=== PATIENT | female | born 1985 | race Caucasian/White ===

== ENCOUNTER 2016-11-12 11:43 | Outpatient (CLI) | payer OTHER ==
[~2016-11-12] VITALS: Ht 160 cm; Wt 96.8 kg
[2016-11-12 12:30] VITALS: BP 120/75; PULSE 84; Ht 160 cm; Wt 96.8 kg
[2016-11-12] MEDS ORDERED: LEVE500V10 IVPB (12:32)
[2016-11-12] MEDS ORDERED: PNV11TAB PO (12:32)
[2016-11-12 13:18] LABS: ADD UMIC YES; URINE BILIRUBIN (Dip) NEGATIVE (NEGATIVE); URINE BLOOD (Dip) 2+ (NEGATIVE); URINE COLOR LT. YELLOW (YELLOW); URINE GLUCOSE (Dip) NEGATIVE (NEGATIVE); URINE KETONES (Dip) NEGATIVE (NEGATIVE); URINE LEUKOCYTE ESTERASE (Dip) NEGATIVE (NEGATIVE); URINE NITRITE (Dip) NEGATIVE (NEGATIVE); URINE TOTAL PROTEIN (Dip) TRACE (NEGATIVE); URINE UROBILINOGEN (Dip) 0.2 E.U./dL (0.1-1.0)
--- NOTE | 2016-11-12 13:23 | RADRPT ---
PROCEDURE: OB ultrasound for biophysical profile CLINICAL INDICATION: Spontaneous rupture of membranes. TECHNIQUE: Multiple sonographic images of the pelvis were obtained. Transabdominal view of the gr avid uterus are available for review. The images were reviewed on a PACS workstation. COMPARISON: OB ultrasound 10/14/2016 FINDINGS: breathing movement = 2/2 tone = 2/2 motion = 2/2 KENDELL = 2/2 KENDELL = 11.12 cm Single live intrauterine with cardiac activity. heart rate equals 131 beats p er minute. Presentation is cephalic. The placenta is anterior. IMPRESSION: 1. Single viable intrauterine gestation. 2. Biophysical profile = 8/8. 3. KENDELL = 11.12 cm. RPTAT: KK .Ernie Bennett MD, MD Date Time Electronically viewed and signed by .Ernie Bennett MD, MD on 11/12/2016 13:22 .B/
[2016-11-12 13:46] LABS: BACTERIA,URINE MODERATE
[2016-11-12 14:19] LABS: ADD SCAN DIFF NO
[2016-11-12 14:23] LABS: BASOPHILS % 0.1 % (0.0-2.0); EOSINOPHILS % 0.6 % (0.0-7.0); HEMOGLOBIN 11.9 g/dl (12.0-16.0); LYMPHOCYTES # 1.2 10^3/ul (0.8-2.9); LYMPHOCYTES % 16.9 % (15.0-51.0); MEAN CORPUSCULAR HEMOGLOBIN 31.3 pg (29.0-33.0); MEAN CORPUSCULAR VOLUME 89.5 fl (82.0-101.0); MEAN PLATELET VOLUME 10.3 fl (7.4-10.4); MONOCYTE # 0.4 10^3/ul (0.3-0.9); MONOCYTES % 5.8 % (0.0-11.0); NEUTROPHIL # 5.5 10^3/ul (1.6-7.5); PLATELET COUNT 152 10^3/UL (140-415); RED CELL DISTRIBUTION WIDTH 12.4 % (11.5-14.5); WHITE BLOOD COUNT 7.2 10^3/ul (4.8-10.8)
--- NOTE | 2016-11-12 16:14 | CONS ---
Date/Time of Note Date/Time of Note DATE: 11/12/16 TIME: 16:07 Consultation Date/Type/Reason Admit Date/Time November 12, 2016 OB triage consult Reason for Consultation This patient is a 31 years old 3 para para living 2 with estimated date of confinement of 12/29/2016 which makes her 23 weeks and 2 days. She was referred from the clinic for possible premature rupture of membrane In reviewing her past history she had 2 spontaneous vaginal deliveries. She has history of epilepsy on a medication called Keppra 500 mg twice daily she also is taking her vitamins during this . On examination she is a well-developed well-nourished lady , with her third child . Her vital signs appear to be normal: Blood pressure 120/75, pulse rate 89, respiration 15, and temperature 98, On examination the abdomen is soft, she does not have much of a contraction, heart tone is audible We did a ROM plus test which came back negative ,Nitrazine test also was negative ,an ultrasound was performed on her which was reported ; a single live intrauterine , heart rate was 131 in cephalic presentation , placenta fundal her KENDELL on 11.12 cm. Laboratory Tests Test 11/12/16 12:55 11/12/16 14:10 Urine Color LT. YELLOW Urine Clarity CLEAR Urine pH 6.0 Urine Specific [place] 1.015 Urine Ketones NEGATIVE Urine Nitrite NEGATIVE Urine Bilirubin NEGATIVE Urine Urobilinogen 0.2 E.U./dL Urine Leukocyte Esterase NEGATIVE Urine Microscopic RBC 10-25/HPF Urine Microscopic WBC 2-5/HPF Urine Epithelial Cells MODERATE Urine Bacteria MODERATE Urine Hemoglobin 2+ Urine Glucose NEGATIVE% Urine Total Protein TRACE Membranes Rupture NEGATIVE White Blood Count 7.210^3/ul Red Blood Count 3.8010^6/ul Hemoglobin 11.9g/dl Hematocrit 34.0% Mean Corpuscular Volume 89.5fl Mean Corpuscular Hemoglobin 31.3pg Mean Corpuscular Hemoglobin Concent 35.0g/dl Red Cell Distribution Width 12.4% Platelet Count 77955^3/UL Mean Platelet Volume 10.3fl Neutrophils % 76.0% Lymphocytes % 16.9% Monocytes % 5.8% Eosinophils % 0.6% Basophils % 0.1% Nucleated Red Blood Cells % 0.0/100WBC Neutrophils # 5.510^3/ul Lymphocytes # 1.210^3/ul Monocytes # 0.410^3/ul Eosinophils # 0.010^3/ul Basophils # 0.010^3/ul Nucleated Red Blood Cells # 0.010^3/ul Hx of Present Illness Her urine test was negative . Her CBC was normal except for mild anemia hemoglobin of 11.9 with hematocrit of 30 Constitutional: No chills, No diaphoresis, No disoriented, No febrile, No improved, No no complaints, No other, No poor po, No requiring IVF, No requiring O2 Eyes: No discharge, No no complaints, No other, No pain, No redness, No visual change ENT: No bleeding, No congestion, No discharge, No dysphagia, No no complaints, No other, No pain, No sore throat Cardiovascular: no complaints, No chest pain, No edema, No lightheadedness, No orthopenea, No other, No palpitations, No paroxysmal nocturnal dyspnea Gastrointestinal: No blood, No constipation, No decreased appetite, No diarrhea , No flatus, No nausea, No no complaints, No other, No pain, No passing stool, No vomiting Genitourinary: other (No evidence of vaginal bleeding or vaginal discharge), No bleeding, No discharge, No dysuria, No flank pain, No hematuria, No no complaints Musculoskeletal: No back pain, No bone/joint pain, No neck pain, No no complaints, No other, No restricted range of motion, No swelling Skin: No bruising, No erythema, No laceration, No no complaints, No other, No pruritis, No rash, No skin lesions Neurologic: No confusion, No dizziness, No focal-weakness, No headache, No no complaints, No other, No seizure, No syncope Endocrine: No dry skin, No no complaints, No other, No polydypsia, No polyuria , No temp intolerance Additional Comments With these negative findings patient was discharged home to be followed in the clinic Social History Smoking Status: Never smoker Exam/Review of Systems Vital Signs Vitals Vital Signs Date Time Temp Pulse Resp B/P Pulse Ox O2 Delivery O2 Flow Rate FiO2 11/12/16 12:30 98.1 84 120/75 Results Result Diagram: 11/12/16 1410 Results 24 hrs Laboratory Tests Test 11/12/16 12:55 11/12/16 14:10 Urine Color LT. YELLOW Urine Clarity CLEAR Urine pH 6.0 Urine Specific [place] 1.015 Urine Ketones NEGATIVE Urine Nitrite NEGATIVE Urine Bilirubin NEGATIVE Urine Urobilinogen 0.2 E.U./dL Urine Leukocyte Esterase NEGATIVE Urine Microscopic RBC 10-25 Urine Microscopic WBC 2-5 Urine Epithelial Cells MODERATE Urine Bacteria MODERATE Urine Hemoglobin 2+ H Urine Glucose NEGATIVE Urine Total Protein TRACE Membranes Rupture NEGATIVE White Blood Count 7.2 Red Blood Count 3.80 L Hemoglobin 11.9 L Hematocrit 34.0 L Mean Corpuscular Volume 89.5 Mean Corpuscular Hemoglobin 31.3 Mean Corpuscular Hemoglobin Concent 35.0 Red Cell Distribution Width 12.4 Platelet Count 152 Mean Platelet Volume 10.3 Neutrophils % 76.0 Lymphocytes % 16.9 Monocytes % 5.8 Eosinophils % 0.6 Basophils % 0.1 Nucleated Red Blood Cells % 0.0 Neutrophils # 5.5 Lymphocytes # 1.2 Monocytes # 0.4 Eosinophils # 0.0 Basophils # 0.0 Nucleated Red Blood Cells # 0.0 KENROY CHOI MD November 12, 2016 16:14
== END 2016-11-12 15:40 | disposition home or self-care (01) ==
LOC: OBT 11:43 → L-D 11:46 → OBT 15:40
PROVIDERS: ATTEND Obstetrics & Gynecology
DX: O26.892 Other specified pregnancy related conditions, second trimester (principal); Z3A.23 23 weeks gestation of pregnancy
CPT/HCPCS: 76818; 81001; 81003; 84112; 85025; 87086

== ENCOUNTER 2016-12-02 10:21 | Outpatient (CLI) | payer OTHER ==
[~2016-12-02] VITALS: Ht 162.6 cm; Wt 100.3 kg
[~2016-12-02 10:21] MED LIST: LEVE500V10 IVPB; PNV11TAB PO
[2016-12-02 10:33] VITALS: Ht 162.6 cm; Wt 100.3 kg
[2016-12-02 10:34] VITALS: BP 117/73; PULSE 76; RESP 18
--- NOTE | 2016-12-02 11:02 | RADRPT ---
PROCEDURE: US OB biophysical profile. CLINICAL INDICATION: decreased movements, contractions TECHNIQUE: Multiple sonographic images of the pelvis were obtained. The images were reviewed on a PACS workstation. COMPARISON: 11/12/2016 FINDINGS: There is a single viable intrauterine gestation. Cardiac activity is present with 146 beats per min [place]. There is a vertex presentation. The placenta is anterior. There is no evidence of placental abruption. There is a normal amount of amniotic fluid with an KENDELL = 9.5 cm. Biophysical profile: movement 2/2 tone 2/2. breathing 2/2 KENDELL 2/2 Total 02/09 RPTAT: AA . IMPRESSION: Normal biophysical profile. . .Lobo Keith MD, MD Date Time Electronically viewed and signed by .Lobo Keith MD, on 12/02/2016 11:02 .S/
[2016-12-02] MEDS ORDERED: PRENAT PO ×2 (12:06→12:10)
--- NOTE | 2016-12-02 12:13 | TRIAGE ---
OB Triage Datetime Report Generated by CPN: 12/02/2016 12:12 Datetime: 12/02/2016 11:18 Comments: NST reactive Datetime: 12/02/2016 10:48 Comments: u/s done Datetime: 12/02/2016 10:38 Stage of : OB Triage Movement: Present Maternal Assessment Level of Consciousness: Fully Conscious DTR's/Clonus: DTRs 2+; No Clonus Headache: Denies Blurred Vision: No Respiratory Effort: Unlabored; Regular Rhythm; Equal Expansion Breath Sounds, Left: Clear and Equal Breath Sounds, Right: Clear and Equal Nausea/Vomiting: Denies RUQ Epigastric Pain: Denies Lower Extremities Edema: None Degree: None Upper Extremities Edema: None Degree: None Facial Edema: None Temperature Route: Axillary Fall Risk Assessment History of Falling: (0) No Secondary Diagnosis: (0) No Ambulatory Aid: (0) Bedrest/Nurse Assist IV Therapy: (0) No Gait: (0) Normal/Bedrest/Immobile Mental Status: (0) Oriented to Own Ability Fall Score: 0 Fall Risk Score Definition: No Risk: No action required Monitor Mode: External (Annotations: denies feeling contractions) Heart Rate FHR Baseline Rate: 145 (Annotations: initial) Monitor Mode: External US Pain Assessment Pain Scale: 0 Datetime: 12/02/2016 10:35 Time of Arrival: 12/02/2016 10:35 EGA: 36.1 Arrived By: Ambulatory Arrived From: Dr. Pittman Chief Complaint: decreased movement Movement: Decreased Contractions: Occasional Rupture of Membranes: Denies Vaginal Bleeding: None Vaginal Discharge: Denies Recent Sexual Intercouse: Denies Abdominal Trauma: Not Applicable Patient Complaints: Other Time Provider Notified: 12/02/2016 11:21 Provider Notified: Dr Blackburn Initial Plan: efm/ bpp Datetime: 11/12/2016 15:27 Stage of : OB Triage Datetime: 11/12/2016 15:10 Labor Evaluation Frequency: 0 Monitor Mode: External Resting Tone [place]: Relaxed Heart Rate FHR Baseline Rate: 135 Monitor Mode: External US Variability: Moderate 6-25 bpm Accelerations: 10X10 Decelerations: None Category: Category I Pain Assessment Pain Scale: 0 Pain Presence: None/Denies Pain Type: N/A Pain Goal: 3 Pain Relief Measures: Comfort Measures Datetime: 11/12/2016 15:02 Stage of : OB Triage Datetime: 11/12/2016 15:00 Stage of : OB Triage Datetime: 11/12/2016 14:07 Labor Evaluation Frequency: 0 Monitor Mode: External Resting Tone [place]: Relaxed Heart Rate FHR Baseline Rate: 135 Monitor Mode: External US Variability: Moderate 6-25 bpm Accelerations: 10X10 Decelerations: None Category: Category I Pain Assessment Pain Scale: 0 Pain Presence: None/Denies Pain Type: N/A Pain Goal: 3 Pain Relief Measures: Comfort Measures Datetime: 11/12/2016 13:17 Labor Evaluation Frequency: 0 Monitor Mode: External Resting Tone [place]: Relaxed Heart Rate FHR Baseline Rate: 135 Monitor Mode: External US Variability: Moderate 6-25 bpm Accelerations: 10X10 Decelerations: None Category: Category I Pain Assessment Pain Scale: 0 Pain Presence: None/Denies Pain Type: N/A Pain Goal: 3 Pain Relief Measures: Comfort Measures Datetime: 11/12/2016 12:39 Stage of : OB Triage Datetime: 11/12/2016 12:26 Stage of : OB Triage Datetime: 11/12/2016 12:09 Stage of : OB Triage Assessment Type: Triage EGA: 33.2 Maternal Assessment Level of Consciousness: Fully Conscious DTR's/Clonus: DTRs 2+; No Clonus Headache: Denies Blurred Vision: No Respiratory Effort: Unlabored; Regular Rhythm; Equal Expansion Breath Sounds, Left: Clear and Equal Breath Sounds, Right: Clear and Equal Nausea/Vomiting: Denies RUQ Epigastric Pain: Denies Facial Edema: None Temperature Route: Axillary Fall Risk Assessment History of Falling: (0) No Secondary Diagnosis: (0) No Ambulatory Aid: (0) Bedrest/Nurse Assist IV Therapy: (0) No Gait: (0) Normal/Bedrest/Immobile Mental Status: (0) Oriented to Own Ability Fall Score: 0 Fall Risk Score Definition: No Risk: No action required Labor Evaluation Frequency: 0 Monitor Mode: External Resting Tone [place]: Relaxed Heart Rate FHR Baseline Rate: 135 Monitor Mode: External US Variability: Moderate 6-25 bpm Decelerations: None Pain Assessment Pain Scale: 0 Pain Presence: None/Denies Pain Type: N/A Pain Goal: 3 Pain Relief Measures: Comfort Measures Datetime: 11/12/2016 12:08 Time of Arrival: 11/12/2016 11:40 Arrived By: Ambulatory Arrived From: Dr. Pittman Chief Complaint: SENT FROM OFFICE TO R/O SROM, DENIES BLEEDING OR LEAKING OF FLUID. STATES CLINIC FOUND BLOOD IN URINE Movement: Present Contractions: Denies/Absent Rupture of Membranes: Unsure Vaginal Bleeding: None Vaginal Discharge: Denies Recent Sexual Intercouse: Denies Abdominal Trauma: Not Applicable Patient Complaints: None Time Provider Notified: 11/12/2016 12:27 Provider Notified: RADHA Initial Plan: MONITOR, ROM PLUS, NITRAZINE, KENDELL
--- NOTE | 2016-12-02 15:30 | QN ---
Documentation Comment 31-year-old with IUP at 36 weeks and 1 day here today for decreased movement. Patient denies any leaking of fluid, vaginal bleeding. Past medical history significant for history of seizure disorder, grand mal diagnosed at age of 21. She is currently on Keppra. Been seen by a neurologist. She stopped her medication during current in August and had a seizure subsequently she was returned back on her medications. She denies any episodes of seizure after she was a started back on her Keppra medication. Physical examination: General appearance: Alert and oriented 4 patient does not appear to be in any acute distress. Abdomen: Gravid, Non tender, fundal height consistent with GA. BPP: 88 NST: Cat 1. PROCEDURE: US OB biophysical profile. CLINICAL INDICATION: decreased movements, contractions TECHNIQUE: Multiple sonographic images of the pelvis were obtained. The images were reviewed on a PACS workstation. COMPARISON: 11/12/2016 FINDINGS: There is a single viable intrauterine gestation. Cardiac activity is present with 146 beats per minute. There is a vertex presentation. The placenta is anterior. There is no evidence of placental abruption. There is a normal amount of amniotic fluid with an KENDELL = 9.5 cm. Biophysical profile: movement 2/2 tone 2/2. breathing 2/2 KENDELL 2/2 Total 02/09 RPTAT: AA . IMPRESSION: Normal biophysical profile. Assessment: IUP at 36 weeks and 1 day Decreased movement, testing reassuring Seizure disorder. On Keppra. Following up by neurologist., Asymptomatic. Plan: DC home Strict labor precaution and kick count discussed Follow-up with her OB office as a scheduled in 1 week or sooner as needed any other concern Return to triage if she feels a still decreased movement, vaginal bleeding , labor pain or any other concerns. Follow-up with her neurologist for management and follow-up of seizure disorder recommended and compliance with taking regularly her medication as well as risk of stopping the medication during including poor maternal and outcome in case of seizure episodes during discussed. Patient verbalized understanding. CHRISTINA ADAMS MD December 02, 2016 15:30
== END 2016-12-02 12:20 | disposition home or self-care (01) ==
LOC: OBT 10:21 → L-D 10:23 → OBT 12:20
PROVIDERS: ATTEND Obstetrics & Gynecology
DX: O36.8130 Decreased fetal movements, third trimester, not applicable or unspecified (principal); O62.8 Other abnormalities of forces of labor; Z3A.36 36 weeks gestation of pregnancy
CPT/HCPCS: 76818; Z7500; G0463

== ENCOUNTER 2016-12-07 16:33 | Outpatient (CLI) | payer OTHER ==
[~2016-12-07] VITALS: Ht 162.6 cm; Wt 99.6 kg
[~2016-12-07 16:33] MED LIST changes: +PRENAT PO
[2016-12-07] MEDS ORDERED: ONDANSETRON 4 MG INJ IV STA (17:36)
[2016-12-07] MEDS ORDERED: CITRIC ACID/SODIUM CITRATE 15 ML CUP PO ONE (18:00)
[2016-12-07 18:43] VITALS: BP 124/77; PULSE 78; RESP 18; Ht 162.6 cm; Wt 99.6 kg
[2016-12-07 18:57] LABS: ADD UMIC YES; UR BILIRUBIN (Dip) NEGATIVE (NEGATIVE); UR BLOOD (Dip) 3+ (NEGATIVE); UR CLARITY CLOUDY (CLEAR); UR COLOR LT. YELLOW (YELLOW); UR GLUCOSE (Dip) NEGATIVE (NEGATIVE); UR KETONES (Dip) NEGATIVE (NEGATIVE); UR LEUKOCYTE ESTERASE (Dip) NEGATIVE (NEGATIVE); UR NITRITE (Dip) NEGATIVE (NEGATIVE); UR TOTAL PROTEIN (Dip) NEGATIVE (NEGATIVE); UR UROBILINOGEN (Dip) 0.2 E.U./dL (0.1-1.0)
[2016-12-07 19:06] LABS: UR BACTERIA FEW; UR SQUAMOUS EPITHELIAL CELL MANY
--- NOTE | 2016-12-07 19:14 | RADRPT ---
PROCEDURE: US OB biophysical profile. CLINICAL INDICATION: decreased movements, contractions TECHNIQUE: Multiple sonographic images of the pelvis were obtained. The images were reviewed on a PACS workstation. COMPARISON: 12/02/2016 FINDINGS: There is a single viable intrauterine gestation. Cardiac activity is present with 166 beats per min [place]. There is a vertex presentation. The placenta is anterior. There is no evidence of placental abruption. There is a normal amount of amniotic fluid with an KENDELL = 13.9 cm. Biophysical profile: movement 2/2 tone 2/2. breathing 2/2 KENDELL 2/2 Total 02/09 RPTAT: AA . IMPRESSION: Normal biophysical profile. . .Lobo Keith MD, MD Date Time Electronically viewed and signed by .Lobo Keith MD, MD on 12/07/2016 19:14 .S/
--- NOTE | 2016-12-07 19:16 | RADRPT ---
PROCEDURE: US OB. CLINICAL INDICATION: Labor madi TECHNIQUE: Multiple sonographic images of the pelvis were obtained. The images were reviewed on a PACS workstation. COMPARISON: OB sonogram 12/07/2016. FINDINGS: The cervix is closed with a length of . There is a single viable intrauterine gestation. Cardiac activity is present with 143 beats per min [place]. There is a cephalic presentation. Measurements were made in order to determine age. The results are as follows: BPD =a 0.9 cm: 36 weeks 1 day HC =31.8 cm: 35 weeks 6 days AC =33.8 cm: 37 weeks 5 days FL =7.2 cm: 36 weeks 5 days.. Estimated gestational age of approximately 36 weeks 4 days plus or minus 2 weeks 4 days. . The estimated date of delivery is not applicable. ALEKSANDRA (AUA) 12/31/2016. The EFW = 3111 g plus or minus 667 g . anatomy is not evaluated. The placenta is anterior grade 2. There is no evidence for an abruption or placenta previa. There is a diminished amount of amniotic fluid with an KENDELL = not measured. There are no adnexal masses.. IMPRESSION: 1. Single viable intrauterine gestation of approximately 36 weeks 4 days plus or minus 2 weeks 4 da ys. 2. Oligohydramnios. Physician Gayle Date Time Electronically viewed and signed by Physician Gayle on 12/07/2016 19:16 /
[2016-12-07 21:03] LABS: ADD SCAN DIFF NO
[2016-12-07 21:07] LABS: BASOPHILS % 0.4 % (0.0-2.0); EOSINOPHILS % 0.5 % (0.0-7.0); HEMATOCRIT 36.1 % (37.0-47.0); HEMOGLOBIN 12.5 g/dl (12.0-16.0); LYMPHOCYTES # 1.7 10^3/ul (0.8-2.9); LYMPHOCYTES % 20.2 % (15.0-51.0); MEAN CORPUSCULAR HEMOGLOBIN 30.9 pg (29.0-33.0); MEAN CORPUSCULAR HGB CONC 34.6 g/dl (32.0-37.0); MEAN CORPUSCULAR VOLUME 89.4 fl (82.0-101.0); MEAN PLATELET VOLUME 10.7 fl (7.4-10.4); MONOCYTE # 0.6 10^3/ul (0.3-0.9); MONOCYTES % 6.6 % (0.0-11.0); NEUTROPHIL # 6.1 10^3/ul (1.6-7.5); NEUTROPHILS % 71.7 % (39.0-77.0); PLATELET COUNT 183 10^3/UL (140-415); RED BLOOD COUNT 4.04 10^6/ul (4.20-5.40); RED CELL DISTRIBUTION WIDTH 13.1 % (11.5-14.5); WHITE BLOOD COUNT 8.5 10^3/ul (4.8-10.8)
[2016-12-07 21:27] LABS: ALBUMIN 3.9 g/dl (3.3-4.9); ALBUMIN/GLOBULIN RATIO 1.5; BILIRUBIN,INDIRECT 0.2 mg/dl (0-1.1); BILIRUBIN,TOTAL 0.2 mg/dl (0.2-1.3); CALCIUM 8.8 mg/dl (8.4-10.2); CREATININE 0.53 mg/dl (0.44-1.00); POTASSIUM 4.3 mmol/L (3.5-5.1); TOTAL PROTEIN 6.5 g/dl (6.1-8.1)
--- NOTE | 2016-12-08 00:57 | RADRPT ---
PROCEDURE: Ultrasound cervix limited CLINICAL INDICATION: Uterine contractions TECHNIQUE: Real time sonographic imaging of the gravid cervix is performed and a total of 3 static [place] scale images are submitted to the PACS for review COMPARISON: Biophysical profile 12/07/2016 FINDINGS: The measurement submitted for review cervical length are 2.57 cm, 2.51 cm and 2.6 cm. The internal cervical os appears closed. RPTAT:HJJR IMPRESSION: Cervical length measured at 2.5 cm. Physician Axel Date Time Electronically viewed and signed by Physician Axel on 12/08/2016 00:57 JR/
--- NOTE | 2016-12-08 04:51 | TRIAGE ---
OB Triage Datetime Report Generated by CPN: 12/08/2016 04:50 Datetime: 12/08/2016 01:10 Stage of : OB Triage Datetime: 12/08/2016 01:00 Labor Evaluation Frequency: IRREGULAR Monitor Mode: External Duration (sec)2399: 60 Quality: Mild Pattern: Normal: <= 5 Contractions in 10 Minutes Resting Tone [place]: Relaxed Heart Rate FHR Baseline Rate: 135 FHR Baseline Changes: No Baseline Change Variability: Moderate 6-25 bpm Accelerations: 15X15 Decelerations: None Category: Category I Datetime: 12/08/2016 00:58 Labor Evaluation Frequency: IRREGULAR Monitor Mode: External Duration (sec)2399: 60 Quality: Mild Pattern: Normal: <= 5 Contractions in 10 Minutes Resting Tone [place]: Relaxed Datetime: 12/08/2016 00:00 Labor Evaluation Frequency: IRREGULAR Monitor Mode: External Duration (sec)2399: 60 Quality: Mild Pattern: Normal: <= 5 Contractions in 10 Minutes Resting Tone [place]: Relaxed Heart Rate FHR Baseline Rate: 135 Monitor Mode: External US FHR Baseline Changes: No Baseline Change Variability: Moderate 6-25 bpm Accelerations: 15X15 Decelerations: None Category: Category I Datetime: 12/07/2016 23:00 Labor Evaluation Frequency: IRREGULAR Monitor Mode: External Duration (sec)2399: 30-60 Quality: Mild Pattern: Normal: <= 5 Contractions in 10 Minutes Resting Tone [place]: Relaxed Heart Rate FHR Baseline Rate: 135 FHR Baseline Changes: No Baseline Change Variability: Moderate 6-25 bpm Accelerations: 15X15 Decelerations: None Category: Category I Datetime: 12/07/2016 22:00 Labor Evaluation Frequency: IRREGULAR Monitor Mode: External Duration (sec)2399: 30-60 Quality: Mild Pattern: Normal: <= 5 Contractions in 10 Minutes Resting Tone [place]: Relaxed Heart Rate FHR Baseline Rate: 135 Monitor Mode: External US FHR Baseline Changes: No Baseline Change Variability: Moderate 6-25 bpm Accelerations: 15X15 Decelerations: None Category: Category I Datetime: 12/07/2016 21:00 Labor Evaluation Frequency: IRREGULAR Monitor Mode: External Duration (sec)2399: 30-60 Quality: Mild Pattern: Normal: <= 5 Contractions in 10 Minutes Resting Tone [place]: Relaxed Heart Rate FHR Baseline Rate: 135 FHR Baseline Changes: No Baseline Change Variability: Moderate 6-25 bpm Accelerations: 15X15 Decelerations: None Category: Category I Datetime: 12/07/2016 20:00 Labor Evaluation Frequency: 3-5 Monitor Mode: External Duration (sec)2399: 60-100 Quality: Mild Pattern: Normal: <= 5 Contractions in 10 Minutes Resting Tone [place]: Relaxed Heart Rate FHR Baseline Rate: 135 FHR Baseline Changes: No Baseline Change Variability: Moderate 6-25 bpm Accelerations: 15X15 Decelerations: None Category: Category I Datetime: 12/07/2016 19:52 Vaginal Exam Dilatation (cms): 2.0 Effacement (%): 60 Station: -2 Exam By: DR GARCIA Vaginal Bleeding: None Cervix, Consistency: Firm Cervix, Position: Posterior Presentation 'A': Unable to Assess Lie 'A': Unable to Assess Datetime: 12/07/2016 19:39 Labor Evaluation Frequency: X1 Monitor Mode: External Duration (sec)2399: 50 Quality: Mild Pattern: Normal: <= 5 Contractions in 10 Minutes Resting Tone [place]: Relaxed Heart Rate FHR Baseline Rate: 130 Monitor Mode: External US FHR Baseline Changes: No Baseline Change Variability: Moderate 6-25 bpm Accelerations: 15X15 Decelerations: None Category: Category I Pain Assessment Pain Scale: 0 Pain Presence: None/Denies Pain Type: N/A Pain Goal: 0 Datetime: 12/07/2016 19:20 Assessment Type: Triage Maternal Assessment Level of Consciousness: Fully Conscious DTR's/Clonus: DTRs 2+; No Clonus Headache: Denies Blurred Vision: No Respiratory Effort: Unlabored; Regular Rhythm; Equal Expansion Breath Sounds, Left: Clear and Equal Breath Sounds, Right: Clear and Equal Nausea/Vomiting: Denies RUQ Epigastric Pain: Denies Lower Extremities Edema: None Degree: None Upper Extremities Edema: None Degree: None Facial Edema: None Fall Risk Assessment History of Falling: (0) No Secondary Diagnosis: (0) No Ambulatory Aid: (0) Bedrest/Nurse Assist IV Therapy: (0) No Gait: (0) Normal/Bedrest/Immobile Mental Status: (0) Oriented to Own Ability Fall Score: 0 Fall Risk Score Definition: No Risk: No action required Datetime: 12/07/2016 18:47 Maternal Assessment Level of Consciousness: Fully Conscious DTR's/Clonus: DTRs 2+; No Clonus Headache: Denies Blurred Vision: No Respiratory Effort: Unlabored Breath Sounds, Left: Clear and Equal Breath Sounds, Right: Clear and Equal Nausea/Vomiting: Denies RUQ Epigastric Pain: Denies Facial Edema: None Labor Evaluation Frequency: 0 Monitor Mode: External Duration (sec)2399: 0 Resting Tone [place]: Relaxed Heart Rate FHR Baseline Rate: 150 Monitor Mode: External US FHR Baseline Changes: No Baseline Change Variability: Moderate 6-25 bpm Accelerations: 15X15 Decelerations: None Category: Category I Membrane Status: Intact Datetime: 12/07/2016 18:22 Labor Evaluation Frequency: 4-5 Monitor Mode: External Quality: Mild Pattern: Normal: <= 5 Contractions in 10 Minutes Intensity IUP (mmHg): 40-50 Resting Tone [place]: Relaxed Heart Rate FHR Baseline Rate: 150 Monitor Mode: External US FHR Baseline Changes: No Baseline Change Variability: Moderate 6-25 bpm Accelerations: 15X15 Decelerations: None Category: Category I Vaginal Exam Dilatation (cms): 2.0 Effacement (%): 60 Station: -2 Exam By: NORTH JOYNER Vaginal Bleeding: None Cervix, Consistency: Firm Cervix, Position: Posterior Presentation 'A': Unable to Assess Lie 'A': Unable to Assess Datetime: 12/07/2016 17:33 Labor Evaluation Frequency: 0 Monitor Mode: External Duration (sec)2399: 0 Resting Tone [place]: Relaxed Heart Rate FHR Baseline Rate: 150 Monitor Mode: External US FHR Baseline Changes: No Baseline Change Variability: Moderate 6-25 bpm Accelerations: 15X15 Decelerations: None Category: Category I Datetime: 12/07/2016 17:18 Stage of : OB Triage Maternal Assessment Level of Consciousness: Fully Conscious DTR's/Clonus: DTRs 2+; No Clonus Headache: Denies Blurred Vision: No Respiratory Effort: Unlabored Breath Sounds, Left: Clear and Equal Breath Sounds, Right: Clear and Equal Nausea/Vomiting: Denies RUQ Epigastric Pain: Denies Facial Edema: None Labor Evaluation Frequency: 0 Monitor Mode: External Duration (sec)2399: 0 Resting Tone [place]: Relaxed Heart Rate FHR Baseline Rate: 150 Monitor Mode: External US FHR Baseline Changes: No Baseline Change Variability: Moderate 6-25 bpm Accelerations: 15X15 Decelerations: None Category: Category I Pain Assessment Pain Scale: 2 Pain Presence: Intermittent Pain Type: Cramping Pain Location: Abdomen Pain Relief Measures: Comfort Measures Datetime: 12/07/2016 17:17 Time of Arrival: 12/07/2016 16:30 EGA: 36.6 Arrived By: Ambulatory Arrived From: Home Chief Complaint: R/O SROM Movement: Present Contractions: Denies/Absent Contractions: 0 Rupture of Membranes: Unsure Vaginal Bleeding: None Vaginal Discharge: Present Recent Sexual Intercouse: Denies Abdominal Trauma: Not Applicable Patient Complaints: None Time Provider Notified: 12/08/2016 01:10 Provider Notified: DELSHAD Datetime: 12/02/2016 10:38 Fall Score: 0 Fall Risk Score Definition: No Risk: No action required Datetime: 12/02/2016 10:35 EGA: 36.1 Datetime: 11/12/2016 12:09 EGA: 33.2 Fall Score: 0 Fall Risk Score Definition: No Risk: No action required
--- NOTE | 2016-12-28 20:15 | QN ---
Documentation Comment Diagnosis: Threatened Labor. MATT GARCIA MD Dec 28, 2016 20:15
== END 2016-12-08 01:10 | disposition home or self-care (01) ==
LOC: L-D 16:33 → OBT 16:33
PROVIDERS: ATTEND Obstetrics & Gynecology
DX: O60.03 Preterm labor without delivery, third trimester (principal); Z3A.36 36 weeks gestation of pregnancy
CPT/HCPCS: 36415; 76815; 76817; 76818; 80053; 81001; 84112; 84560; 85025; Z7500; G0463

== ENCOUNTER 2016-12-16 21:50 | Outpatient (CLI) | payer OTHER ==
[~2016-12-16] VITALS: Ht 162.6 cm; Wt 99.7 kg
[~2016-12-16 21:50] MED LIST changes: -LEVE500V10 IVPB; -PNV11TAB PO
[2016-12-16 22:07] VITALS: Ht 162.6 cm; Wt 99.7 kg
[2016-12-16 22:08] VITALS: BP 126/81; PULSE 126; RESP 18
[2016-12-16] MEDS ORDERED: FERR325T5 PO (22:11)
[2016-12-16] MEDS ORDERED: LEVE500V10 IVPB (22:13)
[2016-12-17 00:42] LABS: ADD UMIC YES; URINE BILIRUBIN (Dip) NEGATIVE (NEGATIVE); URINE BLOOD (Dip) 3+ (NEGATIVE); URINE COLOR LT. YELLOW (YELLOW); URINE GLUCOSE (Dip) NEGATIVE (NEGATIVE); URINE KETONES (Dip) NEGATIVE (NEGATIVE); URINE LEUKOCYTE ESTERASE (Dip) TRACE (NEGATIVE); URINE NITRITE (Dip) NEGATIVE (NEGATIVE); URINE TOTAL PROTEIN (Dip) NEGATIVE (NEGATIVE); URINE UROBILINOGEN (Dip) 1.0 E.U./dL (0.1-1.0)
[2016-12-17 00:43] LABS: ADD SCAN DIFF NO; BASOPHILS % 0.2 % (0.0-2.0); EOSINOPHILS % 0.4 % (0.0-7.0); HEMATOCRIT 35.4 % (37.0-47.0); HEMOGLOBIN 12.1 g/dl (12.0-16.0); LYMPHOCYTES # 1.9 10^3/ul (0.8-2.9); LYMPHOCYTES % 21.5 % (15.0-51.0); MEAN CORPUSCULAR HEMOGLOBIN 30.6 pg (29.0-33.0); MEAN CORPUSCULAR HGB CONC 34.2 g/dl (32.0-37.0); MEAN CORPUSCULAR VOLUME 89.6 fl (82.0-101.0); MEAN PLATELET VOLUME 10.6 fl (7.4-10.4); MONOCYTE # 0.6 10^3/ul (0.3-0.9); MONOCYTES % 6.2 % (0.0-11.0); NEUTROPHIL # 6.3 10^3/ul (1.6-7.5); PLATELET COUNT 159 10^3/UL (140-415); RED BLOOD COUNT 3.95 10^6/ul (4.20-5.40); RED CELL DISTRIBUTION WIDTH 13.2 % (11.5-14.5); WHITE BLOOD COUNT 8.9 10^3/ul (4.8-10.8)
[2016-12-17 01:01] LABS: SQUAMOUS EPITHELIAL CELL,UR MODERATE; URINE RBCS >50 /HPF (0)
[2016-12-17 01:02] LABS: BACTERIA,URINE MODERATE
[2016-12-17 02:36] LABS: ALBUMIN 3.9 g/dl (3.3-4.9); ALBUMIN/GLOBULIN RATIO 1.5; BILIRUBIN,INDIRECT 0.3 mg/dl (0-1.1); BILIRUBIN,TOTAL 0.3 mg/dl (0.2-1.3); CALCIUM 8.8 mg/dl (8.4-10.2); CREATININE 0.58 mg/dl (0.44-1.00); POTASSIUM 3.8 mmol/L (3.5-5.1); TOTAL PROTEIN 6.5 g/dl (6.1-8.1); URIC ACID 4.9 mg/dl (3.1-7.9)
--- NOTE | 2016-12-17 03:09 | RADRPT ---
PROCEDURE: ULTRASOUND BIOPHYSICAL PROFILE CLINICAL INDICATION: 31-year-old female with contractions for viability. TECHNIQUE: Multiple sonographic images were obtained in order to perform a biophysical profile The images were reviewed on a PACS workstation. COMPARISON: Ultrasound biophysical profile December 07, 2016. FINDINGS: There is a single viable intrauterine gestation. There is a vertex presentation. Cardiac activity i s present at 125 beats per minute. The placenta is anterior. The results of the biophysical profile are as follows: breathing movement = 2/2 Gross body movement = 2/2 tone = 2/2 Qualitative amniotic fluid volume = 2/2 Amniotic fluid index equals 11.4 cm. This yields a biophysical profile score of 8/8. IMPRESSION: Biophysical profile score is 8/8. .Cornelio Donnelly MD, MD Date Time Electronically viewed and signed by .Cornelio Donnelly MD, on 12/17/2016 03:09 .M/
--- NOTE | 2016-12-17 04:48 | TRIAGE ---
OB Triage Datetime Report Generated by CPN: 12/17/2016 04:47 Datetime: 12/16/2016 23:51 Stage of : OB Triage Labor Evaluation Frequency: NONE Monitor Mode: External Heart Rate FHR Baseline Rate: 135 Monitor Mode: External US Variability: Moderate 6-25 bpm Accelerations: 15X15 Decelerations: None Category: Category I Datetime: 12/16/2016 22:38 Time of Arrival: 12/16/2016 21:45 EGA: 38.1 Arrived By: Wheelchair Arrived From: Home Chief Complaint: w/ c/o leaking sm amts fluid since 020. States hx epilepsy w/ last seizure 08/21 Movement: Present Contractions: Denies/Absent Rupture of Membranes: Unsure Vaginal Bleeding: None Vaginal Discharge: Present Recent Sexual Intercouse: Denies Abdominal Trauma: Not Applicable Patient Complaints: Other Time Provider Notified: 12/16/2016 23:33 Provider Notified: Dr Delshadf Initial Plan: EFM,SVE Datetime: 12/16/2016 22:01 Stage of : OB Triage Maternal Assessment Level of Consciousness: Fully Conscious Headache: Denies Blurred Vision: No Respiratory Effort: Unlabored Nausea/Vomiting: Denies RUQ Epigastric Pain: Denies Facial Edema: None Labor Evaluation Frequency: placed Monitor Mode: External Resting Tone [place]: Relaxed Monitor Mode: External US Comments: FHT 145 Pain Assessment Pain Scale: 0 Pain Presence: None/Denies Pain Type: N/A Datetime: 12/07/2016 19:20 Fall Risk Assessment Fall Score: 0 Fall Risk Score Definition: No Risk: No action required Datetime: 12/07/2016 17:17 EGA: 36.6 Datetime: 12/02/2016 10:38 Fall Risk Assessment Fall Score: 0 Fall Risk Score Definition: No Risk: No action required Datetime: 12/02/2016 10:35 EGA: 36.1 Datetime: 11/12/2016 12:09 EGA: 33.2 Fall Risk Assessment Fall Score: 0 Fall Risk Score Definition: No Risk: No action required
--- NOTE | 2016-12-17 05:22 | PN ---
Triage Information Date/Time 12/17/2016 Weeks of Gestation 38.2 weeks : 3 Para: 2 Diabetes: none Hypertention: none Additional information Hisotry of Epilepsy and was on Keppra during pregnancvy 31 years old G 3 P2 with IUP at 38 weeks and 2 presented to triage with complaint of leaking of fluid since yesterday. She never felt any gush of fluid. She reported some small amount of leaking throughout the day. Denies any vaginal bleeding or uterine contractions or decreased movement. Past medical history significant for history of seizure disorder was well controlled with Keppra during . Patient examined in arrival and was 1 cm long and high. Objective Vital Signs Date Time Temp Pulse Resp B/P Pulse Ox O2 Delivery O2 Flow Rate FiO2 12/16/16 22:08 98.6 126 18 126/81 Room Air Exam General appearance: Alert and oriented 4 patient does not appear to be in any acute distress. Abdomen: Soft, gravid, nontender, no rebound tenderness or guarding Fundal height consistent with gestational age. Extremities: No calf tenderness, no click no edema NST: Category 1 BPP 8/8 status Examination: Negative pooling and Nitrazine. ROM test negative Results/Medications Result Diagram: 12/17/16 0029 12/17/16 0029 Results 24 hrs Laboratory Tests Test 12/16/16 23:10 12/16/16 23:25 12/17/16 00:29 Urine Color LT. YELLOW Urine Clarity CLEAR Urine pH 7.0 Urine Specific [place] 1.020 Urine Ketones NEGATIVE Urine Nitrite NEGATIVE Urine Bilirubin NEGATIVE Urine Urobilinogen 1.0 E.U./dL Urine Leukocyte Esterase TRACE H Urine Microscopic RBC >50 Urine Microscopic WBC 5-10 Urine Squamous Epithelial Cells MODERATE Urine Calcium Oxalate Crystals FEW Urine Bacteria MODERATE Urine Hemoglobin 3+ H Urine Glucose NEGATIVE Urine Total Protein NEGATIVE Membranes Rupture NEGATIVE White Blood Count 8.9 Red Blood Count 3.95 L Hemoglobin 12.1 Hematocrit 35.4 L Mean Corpuscular Volume 89.6 Mean Corpuscular Hemoglobin 30.6 Mean Corpuscular Hemoglobin Concent 34.2 Red Cell Distribution Width 13.2 Platelet Count 159 Mean Platelet Volume 10.6 H Neutrophils % 71.0 Lymphocytes % 21.5 Monocytes % 6.2 Eosinophils % 0.4 Basophils % 0.2 Nucleated Red Blood Cells % 0.0 Neutrophils # 6.3 Lymphocytes # 1.9 Monocytes # 0.6 Eosinophils # 0.0 Basophils # 0.0 Nucleated Red Blood Cells # 0.0 Sodium Level 139 Potassium Level 3.8 Chloride Level 111 H Carbon Dioxide Level 22 Anion Gap 10 Blood Urea Nitrogen 10 Creatinine 0.58 Glucose Level 78 Uric Acid 4.9 Calcium Level 8.8 Total Bilirubin 0.3 Direct Bilirubin 0.00 Indirect Bilirubin 0.3 Aspartate Amino Transf (AST/SGOT) 20 Alanine Aminotransferase (ALT/SGPT) 30 Alkaline Phosphatase 143 H Total Protein 6.5 Albumin 3.9 Globulin 2.60 Albumin/Globulin Ratio 1.50 Imaging Results PROCEDURE: ULTRASOUND BIOPHYSICAL PROFILE CLINICAL INDICATION: 31-year-old female with contractions for viability. TECHNIQUE: Multiple sonographic images were obtained in order to perform a biophysical profile The images were reviewed on a PACS workstation. COMPARISON: Ultrasound biophysical profile December 07, 2016. FINDINGS: There is a single viable intrauterine gestation. There is a vertex presentation. Cardiac activity is present at 125 beats per minute. The placenta is anterior. The results of the biophysical profile are as follows: breathing movement = 2/2 Gross body movement = 2/2 tone = 2/2 Qualitative amniotic fluid volume = 2/2 Amniotic fluid index equals 11.4 cm. This yields a biophysical profile score of 8/8. IMPRESSION: Biophysical profile score is 8/8. Assessment/Plan IUP at 38.2 weeks No evidence of labor or PROM DC home Labor precaution and kick counts discussed Follow up with OB clinic in the next 1-2 days RT triage if LOF, VB, Cx , decreased FM or any other concerns Patient verbalized undestanding CHRISTINA ADAMS MD Dec 17, 2016 05:22
== END 2016-12-17 04:05 | disposition home or self-care (01) ==
LOC: OBT 21:50 → L-D 21:50 → OBT 12-17 04:05
PROVIDERS: ATTEND Obstetrics & Gynecology
DX: O42.92 Full-term premature rupture of membranes, unspecified as to length of time between rupture and onset of labor (principal); Z3A.38 38 weeks gestation of pregnancy
CPT/HCPCS: 36415; 76818; 80053; 81001; 84112; 84560; 85025; 87086; 96372; G0463

== ENCOUNTER 2016-12-22 13:45 | Outpatient (CLI) | payer OTHER ==
[~2016-12-22] VITALS: Ht 162.6 cm; Wt 100.7 kg
[~2016-12-22 13:45] MED LIST changes: +FERR325T5 PO; +LEVE500V10 IVPB
[2016-12-22] MEDS ORDERED: FOLI-49 PO (14:09)
[2016-12-22] MEDS ORDERED: LEVE-5 PO (14:09)
[2016-12-22] MEDS ORDERED: LEVE500T34 PO (14:09)
[2016-12-22 14:10] VITALS: Ht 162.6 cm; Wt 100.7 kg
[2016-12-22 14:11] VITALS: BP 131/77; PULSE 105; RESP 18
[2016-12-22 15:18] LABS: ADD SCAN DIFF NO
[2016-12-22 15:23] LABS: BASOPHILS % 0.2 % (0.0-2.0); EOSINOPHILS # 0.1 10^3/ul (0.0-0.5); EOSINOPHILS % 1.2 % (0.0-7.0); HEMOGLOBIN 11.8 g/dl (12.0-16.0); LYMPHOCYTES # 1.2 10^3/ul (0.8-2.9); LYMPHOCYTES % 14.5 % (15.0-51.0); MEAN CORPUSCULAR HEMOGLOBIN 31.7 pg (29.0-33.0); MEAN CORPUSCULAR HGB CONC 35.8 g/dl (32.0-37.0); MEAN CORPUSCULAR VOLUME 88.7 fl (82.0-101.0); MEAN PLATELET VOLUME 10.8 fl (7.4-10.4); MONOCYTE # 0.6 10^3/ul (0.3-0.9); MONOCYTES % 6.8 % (0.0-11.0); NEUTROPHIL # 6.2 10^3/ul (1.6-7.5); NEUTROPHILS % 76.7 % (39.0-77.0); PLATELET COUNT 146 10^3/UL (140-415); RED BLOOD COUNT 3.72 10^6/ul (4.20-5.40); RED CELL DISTRIBUTION WIDTH 13.3 % (11.5-14.5); WHITE BLOOD COUNT 8.1 10^3/ul (4.8-10.8)
[2016-12-22 15:44] LABS: ALBUMIN 3.4 g/dl (3.3-4.9); ALBUMIN/GLOBULIN RATIO 1.3; BILIRUBIN,INDIRECT 0.1 mg/dl (0-1.1); BILIRUBIN,TOTAL 0.1 mg/dl (0.2-1.3); CALCIUM 9.2 mg/dl (8.4-10.2); CREATININE 0.51 mg/dl (0.44-1.00); POTASSIUM 3.3 mmol/L (3.5-5.1); URIC ACID 4.6 mg/dl (3.1-7.9)
[2016-12-22 15:46] LABS: ADD UMIC YES; UR ASCORBIC ACID 20 mg/dL (NEGATIVE); UR BACTERIA FEW /HPF (NONE SEEN); UR BILIRUBIN (Dip) NEGATIVE (NEGATIVE); UR BLOOD (Dip) 2+ mg/dL (NEGATIVE); UR CLARITY CLOUDY (CLEAR); UR COLOR YELLOW (YELLOW); UR GLUCOSE (Dip) NEGATIVE (NEGATIVE); UR KETONES (Dip) NEGATIVE (NEGATIVE); UR LEUKOCYTE ESTERASE (Dip) NEGATIVE Leu/ul (NEGATIVE); UR NITRITE (Dip) NEGATIVE (NEGATIVE); UR RBC 118 /HPF (0-5); UR SQUAMOUS EPITHELIAL CELL FEW /HPF (FEW); UR TOTAL PROTEIN (Dip) NEGATIVE (NEGATIVE); UR UROBILINOGEN (Dip) NEGATIVE (NEGATIVE)
--- NOTE | 2016-12-22 15:58 | RADRPT ---
PROCEDURE: OB ultrasound for biophysical profile CLINICAL INDICATION: Hypertension. TECHNIQUE: Multiple sonographic images of the pelvis were obtained. Transabdominal view of the gr avid uterus are available for review. The images were reviewed on a PACS workstation. COMPARISON: 12/17/2016. FINDINGS: breathing movement = 2/2 tone = 2/2 motion = 2/2 Quantitative amniotic fluid volume = 2/2 KENDELL = 8.4 cm Single live intrauterine with cardiac activity at 166 beats per minute. There is a anterior placenta without previa. IMPRESSION: 1. Single living intrauterine gestation in cephalic position. 2. Biophysical profile = 02/09. 3. KENDELL = 8.4 cm. RPTAT: [facility] Physician Dana Date Time Electronically viewed and signed by Physician Dana on 12/22/2016 15:57 /
--- NOTE | 2016-12-22 15:58 | RADRPT ---
PROCEDURE: Obstetrical ultrasound CLINICAL INDICATION: High blood pressure TECHNIQUE: Multiple sonographic images of the pelvis were obtained. The images were reviewed on a PACS workstation. COMPARISON: Obstetrical ultrasound from 12/17/2016 FINDINGS: The cervix is not well visualized. There is a single viable intrauterine gestation. Cardiac activity is present with 179 beats per minute. There is a vertex presentation. The placenta is anterior. There is no evidence for an abruption or placenta previa. There is a subjectively normal amount of amniotic fluid. Measurements were made in order to determine age. The results are as follows (cm): BPD =9.33 HC =33.01 AC =35.19 FL =7.81 Estimated gestational age by ultrasound of approximately 38 weeks, 5 days. The estimated date of delivery by ultrasound is 12/31/2016. Estimated gestational age by LMP of approximately 39 weeks, 0 days. The estimated date of delivery by LMP is 12/29/2016. EFW = 3641 grams (68th percentile) IMPRESSION: Single viable intrauterine gestation of approximately 38 weeks, 5 days . The estimated date of delivery is 12/31/2016 . Dating by ultrasound is within 2 days of dating by LMP. Elevated heart rate of 179 beats per minute. Cephalic presentation. Estimated weight is in the 68th percentile. These findings were discussed with the nurse taking care of the patient, Markos, over the phone on 12/04 at 3:56 PM. RPTAT: EE Physician Franklin Date Time Electronically viewed and signed by Physician Franklin on 12/22/2016 15:57 /
--- NOTE | 2016-12-22 17:15 | TRIAGE ---
OB Triage Datetime Report Generated by CPN: 12/22/2016 17:15 Datetime: 12/22/2016 16:00 Stage of : OB Triage Maternal Assessment Level of Consciousness: Fully Conscious Labor Evaluation Frequency: NONE Monitor Mode: External Resting Tone [place]: Relaxed Heart Rate FHR Baseline Rate: 155 Monitor Mode: External US Variability: Moderate 6-25 bpm Accelerations: 15X15 Decelerations: None Pain Assessment Pain Scale: 0 Pain Goal: 3 Membrane Status: Intact Vaginal Bleeding: None Datetime: 12/22/2016 15:00 Stage of : OB Triage Maternal Assessment Level of Consciousness: Fully Conscious Labor Evaluation Frequency: NONE Monitor Mode: External Resting Tone [place]: Relaxed Heart Rate FHR Baseline Rate: 145 Monitor Mode: External US Variability: Moderate 6-25 bpm Accelerations: 15X15 Decelerations: None Category: Category I Pain Assessment Pain Scale: 0 Pain Goal: 3 Membrane Status: Intact Vaginal Bleeding: None Datetime: 12/22/2016 14:02 Assessment Type: Triage Maternal Assessment Level of Consciousness: Fully Conscious DTR's/Clonus: DTRs 2+; No Clonus Headache: Denies Blurred Vision: Yes Blurred Vision: No Respiratory Effort: Unlabored; Regular Rhythm; Equal Expansion Breath Sounds, Left: Clear and Equal Breath Sounds, Right: Clear and Equal Nausea/Vomiting: Denies Nausea/Vomiting: Denies RUQ Epigastric Pain: Denies Lower Extremities Edema: Bilateral Lower Extremities Degree: None Upper Extremities Edema: None Degree: None Facial Edema: None Fall Risk Assessment History of Falling: (0) No Secondary Diagnosis: (0) No Ambulatory Aid: (0) Bedrest/Nurse Assist IV Therapy: (0) No Gait: (0) Normal/Bedrest/Immobile Mental Status: (0) Oriented to Own Ability Fall Score: 0 Fall Risk Score Definition: No Risk: No action required Datetime: 12/22/2016 14:01 Time of Arrival: 12/22/2016 13:40 EGA: 39.0 Arrived By: Ambulatory Arrived From: Home Chief Complaint: C/O DIZZINESS AND SEEING FLOATERS Movement: Present Contractions: Denies/Absent Rupture of Membranes: Ruptured Vaginal Bleeding: None Vaginal Discharge: Denies Recent Sexual Intercouse: Denies Abdominal Trauma: Not Applicable Patient Complaints: Visual Disturbance; Dizziness Time Provider Notified: 12/22/2016 14:29 Provider Notified: RADHA Initial Plan: UA, CBC, CMP, URIC ACID, BPP, EFW Datetime: 12/22/2016 13:59 Monitor Mode: External Monitor Mode: External US Datetime: 12/17/2016 04:00 Stage of : OB Triage Datetime: 12/17/2016 03:14 Stage of : OB Triage Monitor Mode: External Pattern: Normal: <= 5 Contractions in 10 Minutes Resting Tone [place]: Relaxed Heart Rate FHR Baseline Rate: 150 Monitor Mode: External US FHR Baseline Changes: No Baseline Change Variability: Moderate 6-25 bpm Accelerations: 15X15 Decelerations: None Category: Category I Pain Presence: None/Denies Pain Type: N/A Datetime: 12/17/2016 01:46 Stage of : OB Triage Monitor Mode: External Resting Tone [place]: Relaxed Heart Rate FHR Baseline Rate: 130 Monitor Mode: External US Pain Assessment Pain Scale: 0 Pain Presence: None/Denies Pain Type: N/A Datetime: 12/16/2016 23:31 Stage of : OB Triage Datetime: 12/16/2016 23:27 Stage of : OB Triage Monitor Mode: External Pattern: Normal: <= 5 Contractions in 10 Minutes Resting Tone [place]: Relaxed Heart Rate FHR Baseline Rate: 135 Monitor Mode: External US FHR Baseline Changes: No Baseline Change Variability: Moderate 6-25 bpm Accelerations: 15X15 Decelerations: None Category: Category I Pain Assessment Pain Scale: 0 Pain Presence: None/Denies Pain Type: N/A Vaginal Exam Dilatation (cms): 1.5 Effacement (%): 50 Station: -3 Exam By: E Oziel Amniotic Fluid Amount: None Amniotic Fluid Odor: None Vaginal Bleeding: None Pool: Negative Nitrazine: Negative Cervix, Consistency: Moderate Cervix, Position: Posterior Presentation 'A': Cephalic Datetime: 12/16/2016 22:38 EGA: 38.1 Datetime: 12/07/2016 19:20 Fall Score: 0 Fall Risk Score Definition: No Risk: No action required Datetime: 12/07/2016 17:17 EGA: 36.6 Datetime: 12/02/2016 10:38 Fall Score: 0 Fall Risk Score Definition: No Risk: No action required Datetime: 12/02/2016 10:35 EGA: 36.1 Datetime: 11/12/2016 12:09 EGA: 33.2 Fall Score: 0 Fall Risk Score Definition: No Risk: No action required
== END 2016-12-22 17:30 | disposition home or self-care (01) ==
LOC: L-D 13:45 → OBT 13:45 → L-D 13:54 → OBT 17:30
PROVIDERS: ATTEND Obstetrics & Gynecology
DX: O16.3 Unspecified maternal hypertension, third trimester (principal); Z3A.38 38 weeks gestation of pregnancy
CPT/HCPCS: 76815; 76818; 80053; 81001; 84560; 85025; Z7500; G0463

== ENCOUNTER 2016-12-23 17:50 | Inpatient (IN) | payer OTHER ==
[~2016-12-23] VITALS: Ht 162.6 cm; Wt 100.5 kg
[~2016-12-23 17:50] MED LIST changes: -FERR325T5 PO; +FOLI-49 PO; +LEVE-5 PO; -LEVE500V10 IVPB
[2016-12-23 19:28] VITALS: Ht 162.6 cm; Wt 100.5 kg
[2016-12-23 19:29] VITALS: BP 132/79; PULSE 89; RESP 18
[2016-12-23] MEDS ORDERED: MISOPROSTOL 200 MCG TAB PR PRN (20:00)
[2016-12-23] MEDS ORDERED: CARBOPROST 250 MCG INJ IM PRN (20:00)
[2016-12-23] MEDS ORDERED: LIDOCAINE 1% (MPF) 30 ML INJ INJ PRN (20:00)
[2016-12-23] MEDS ORDERED: BUTORPHANOL 2 MG INJ IV PRN (20:00)
[2016-12-23] MEDS ORDERED: OXYTOCIN 30 UNITS/LR 500 ML IV SCH (20:00)
[2016-12-23] MEDS ORDERED: METHYLERGONOVINE 0.2 MG INJ IM PRN (20:00)
[2016-12-23] MEDS ORDERED: IBUPROFEN 600 MG TAB PO PRN (20:00)
[2016-12-23] MEDS ORDERED: OXYTOCIN 30 UNITS/LR 500 ML IV PRN (20:00)
[2016-12-23] MEDS ORDERED: LACTATED RINGER'S 1,000 ML IV PRN (20:00)
--- NOTE | 2016-12-23 20:49 | HP ---
Date/Time of Note Date/Time of Note DATE: 12/23/16 TIME: 20:45 OB - History Hx of Present Chief Complaint: conctractions Estimated Due Date: Dec 29, 2016 : 3 Para: 2 Spontaneous : 0 Therapeutic : 0 Care: Good Care Ultrasounds: Normal mid trimester US Obstetrical Complications: None Medical Complications: Neurological (epilepsy) Past Family/Social History * Past Medical, Surgical, Family and Obstetric Histories reviewed from chart. GBS Status: Negative OB Admission Exam Vital Signs Vital Signs Vital Signs Date Time Temp Pulse Resp B/P Pulse Ox O2 Delivery O2 Flow Rate FiO2 12/23/16 19:29 97.8 89 18 132/79 Room Air Physical Exam HEENT: WNL Heart: Rhythm Normal Lungs: Clear Abdomen: WNL Extremities: Normal Reflexes: Normal Cervical Dilatation: 2cm Effacement: 50% Station: -1 Membranes: Intact Heart Rate: 130's Accelerations: Accelerations Present Decelerations: No Decelerations Varibility: Moderate OB Assessment/Plan Reason for admission: other (labor contractions) Plan: Expectant Management MATT GARCIA MD Dec 23, 2016 20:49
[2016-12-23] MEDS: LACTATED RINGER'S 1,000 ML IV SCH (21:48)
[2016-12-23 22:03] LABS: ADD SCAN DIFF NO
[2016-12-23 22:04] LABS: BASOPHILS % 0.2 % (0.0-2.0); EOSINOPHILS # 0.1 10^3/ul (0.0-0.5); EOSINOPHILS % 0.8 % (0.0-7.0); HEMATOCRIT 34.2 % (37.0-47.0); HEMOGLOBIN 11.8 g/dl (12.0-16.0); LYMPHOCYTES # 1.6 10^3/ul (0.8-2.9); LYMPHOCYTES % 17.4 % (15.0-51.0); MEAN CORPUSCULAR HEMOGLOBIN 30.9 pg (29.0-33.0); MEAN CORPUSCULAR HGB CONC 34.5 g/dl (32.0-37.0); MEAN CORPUSCULAR VOLUME 89.5 fl (82.0-101.0); MEAN PLATELET VOLUME 10.7 fl (7.4-10.4); MONOCYTE # 0.6 10^3/ul (0.3-0.9); MONOCYTES % 6.9 % (0.0-11.0); NEUTROPHIL # 6.9 10^3/ul (1.6-7.5); NEUTROPHILS % 74.2 % (39.0-77.0); PLATELET COUNT 165 10^3/UL (140-415); RED BLOOD COUNT 3.82 10^6/ul (4.20-5.40); RED CELL DISTRIBUTION WIDTH 13.6 % (11.5-14.5); WHITE BLOOD COUNT 9.3 10^3/ul (4.8-10.8)
[2016-12-23 22:12] LABS: ADD UMIC YES; UR ASCORBIC ACID 20 mg/dL (NEGATIVE); UR BILIRUBIN (Dip) NEGATIVE (NEGATIVE); UR BLOOD (Dip) 2+ mg/dL (NEGATIVE); UR CLARITY CLOUDY (CLEAR); UR COLOR YELLOW (YELLOW); UR GLUCOSE (Dip) NEGATIVE (NEGATIVE); UR KETONES (Dip) TRACE mg/dL (NEGATIVE); UR LEUKOCYTE ESTERASE (Dip) NEGATIVE Leu/ul (NEGATIVE); UR MUCUS MANY /HPF (NONE SEEN); UR NITRITE (Dip) NEGATIVE (NEGATIVE); UR RBC 85 /HPF (0-5); UR SPECIFIC GRAVITY (Dip) 1.025 (1.003-1.030); UR TOTAL PROTEIN (Dip) 1+ mg/dl (NEGATIVE); UR UROBILINOGEN (Dip) NEGATIVE (NEGATIVE)
[2016-12-23 22:21] LABS: INR 0.96; PROTIME 12.8 Sec (12.2-14.2)
[2016-12-23 22:22] LABS: PARTIAL THROMBOPLASTIN TIME 24.8 Sec (25.0-35.0)
[2016-12-23 22:24] LABS: ALANINE AMINOTRANSFERASE 26 IU/L (13-69); ALBUMIN 3.4 g/dl (3.3-4.9); ALBUMIN/GLOBULIN RATIO 1.47; ALKALINE PHOSPHATASE 140 IU/L (42-121); ANION GAP 13 (8-16); ASPARTATE AMINO TRANSFERASE 15 IU/L (15-46); BILIRUBIN,INDIRECT 0.1 mg/dl (0-1.1); BILIRUBIN,TOTAL 0.1 mg/dl (0.2-1.3); BLOOD UREA NITROGEN 9 mg/dl (7-20); CALCIUM 9.5 mg/dl (8.4-10.2); CARBON DIOXIDE 21 mmol/L (21-31); CHLORIDE 108 mmol/L (97-110); CREATININE 0.52 mg/dl (0.44-1.00); GLUCOSE 75 mg/dl (70-220); POTASSIUM 3.7 mmol/L (3.5-5.1); SODIUM 138 mmol/L (135-144); TOTAL PROTEIN 5.7 g/dl (6.1-8.1)
[2016-12-23] MEDS: LEVETIRACETAM 500 MG TAB PO SCH (22:32)
[2016-12-23] MEDS ORDERED: MAGNESIUM SULFATE 4 GM/100 ML 100 ML IVPB ONE (23:30)
[2016-12-24] MEDS: MAGNESIUM SULFATE 20 GM/500 ML 500 ML IV SCH ×3 (03:16→23:45)
[2016-12-24] MEDS: LACTATED RINGER'S 1,000 ML IV SCH ×2 (06:14→19:03)
[2016-12-24] MEDS: ACETAMINOPHEN 325 MG TAB PO PRN ×3 (08:05→21:05)
[2016-12-24] MEDS: LEVETIRACETAM 500 MG TAB PO SCH ×2 (09:26→21:01)
[2016-12-24] MEDS ORDERED: OXYTOCIN 30 UNITS/LR 500 ML IV SCH (09:30)
[2016-12-24] MEDS ORDERED: NALOXONE (0.4 MG/ML) INJ IV PRN (23:00)
[2016-12-24] MEDS ORDERED: ONDANSETRON 4 MG INJ IV PRN (23:00)
[2016-12-24] MEDS ORDERED: DIPHENHYDRAMINE 50 MG INJ IV PRN (23:00)
[2016-12-25] MEDS: ACETAMINOPHEN 325 MG TAB PO PRN ×2 (07:55→18:08)
[2016-12-25] MEDS: MAGNESIUM SULFATE 20 GM/500 ML 500 ML IV SCH ×2 (09:10→18:38)
[2016-12-25] MEDS: LEVETIRACETAM 500 MG TAB PO SCH ×2 (09:11→21:11)
[2016-12-25] MEDS: FENTAnyl 2MCG/ML-ROPIV 0.2% 100 ML BAG EPI SCH ×2 (09:32→16:40)
[2016-12-25] MEDS: LACTATED RINGER'S 1,000 ML IV SCH (13:20)
[2016-12-25] MEDS: OXYTOCIN 30 UNITS/LR 500 ML IV SCH ×2 (20:42→21:00)
--- NOTE | 2016-12-25 20:55 | LDN ---
Date/Time of Note Date/Time of Note DATE: 12/25/16 TIME: 20:53 Delivery Summary Weeks of Gestation 39 weeks and 3 days Placenta Delivered: Spontaneously Meconium: none Episiotomy: No Perineal laceration: 0 Anesthesia type: Epidural Estimated blood loss: 300 Sponge & Needle done & correct: Yes All needle counts correct: Yes Any foreign bodies felt in the: No Problems: Infant Delivery Information Sex Infant Sex: female Apgars 1 Minute: 9 5 Minute: 9 Suctioning Nose & mouth suctioned at madi: Yes Delee suction performed: Yes Umbilical Cord Umbilical cord with: 3 Vessels Cord presentations: no nuchal cord Cord Blood was obtained: Yes Mother & Baby Disposition Disposition Mom & Baby to Maternity; Good: Yes MATT GARCIA MD Dec 25, 2016 20:55
--- NOTE | 2016-12-25 22:19 | DELSUM ---
Delivery Summary A-C Datetime Report Generated by CPN: 12/25/2016 22:18 DELIVERY PERSONNEL Intern Architect: Patito Martinez MATERNAL INFORMATION Delivery Anesthesia: Epidural Medications in Delivery: 30units pitocin Estimated Blood Loss (ml): 300 Placenta Cultured: No Maternal Complications: Other Other Maternal Complications: h/o epilepsy- last attack 08/2016 RN Comments: eclampsia on magnesium sulphate, headache, left eye "floaters", LABOR SUMMARY EDC: 12/29/2016 00:00 No. Babies in Womb: 1 Attempted: No Labor Anesthesia: Epidural LABOR INFORMATION Reason for Induction: Gest. HTN/PreEclam/Eclamp Onset of Labor: 12/24/2016 09:00 Complete Dilatation: 12/25/2016 18:00 Oxytocin: Induction Group B Beta Strep: Negative Antibiotics # of Doses: X0 Steroids Given: None Reason Steroids Not Administered: Not Applicable MEMBRANES Membranes Rupture Method: Artificial Rupture of Membranes: 12/25/2016 19:52 Length of Rupture (hr): 0.50 Amniotic Fluid Color: Clear Amniotic Fluid Amount: Large Amniotic Fluid Odor: None STAGES OF LABOR Stage 1 hr: 33 Stage 1 min: 0 Stage 2 hr: 2 Stage 2 min: 22 Stage 3 hr: 0 Stage 3 min: 9 Total Time in Labor hr: 35 Total Time in Labor min: 31 VAGINAL DELIVERY Episiotomy: None Laceration Extension: N/A Laceration Type: None Initial Vag Sponge Count: 10 Final Vag Sponge Count: 10 Initial Vag Sharps Count: 1 Final Vag Sharps Count: 1 Sponge Count Correct: Yes Sharps Count Correct: Yes BABY A INFORMATION Delivery Date/Time: 12/25/2016 20:22 Method of Delivery: Vaginal Born in Route : No : N/A Forceps: N/A Vacuum Extraction: N/A Shoulder Dystocia : No SHOULDER DYSTOCIA BABY A Delivery Date/Time: 12/25/2016 20:22 PRESENTATION/POSITION BABY A Presentation: Cephalic Presentation: Cephalic Presentation: Cephalic Presentation: Unable to Assess Presentation: Unable to Assess Cephalic Presentation: Vertex Vertex Position: Left Occipital Anterior Breech Presentation: N/A PLACENTA INFORMATION BABY A Placenta Delivery Time : 12/25/2016 20:31 Placenta Method of Delivery: Spontaneous Placenta Status: Delivered SCORES BABY A Heart Rate 1 min: >100 bpm Resp Effort 1 min: Good Cry Reflex Irritability 1 min: Cough/Sneeze/Pulls Away Muscle Tone 1 min: Active Motion Color 1 min: Body [place], Extremit Blue Resuscitation Effort 1 min: Tactile Stimulation SCORE 1 MIN: 9 Heart Rate 5 min: >100 bpm Resp Effort 5 min: Good Cry Reflex Irritability 5 min: Cough/Sneeze/Pulls Away Muscle Tone 5 min: Active Motion Color 5 min: Body [place], Extremit Blue Resuscitation Effort 5 min: Tactile Stimulation SCORE 5 MIN: 9 INFANT INFORMATION BABY A Gestational Age at Delivery: 39.3 Gestational Status: Full Term- 39- 40.6 Weeks Outcome : Liveborn Infant Condition : Stable Sex: Female IDENTIFICATION/MEDS BABY A ID Band Number: [id number] ID Band Location: Right Leg; Left Arm Sensor Applied: Yes Sensor Number: [id number] Sensor Location : Cord Clamp Vitamin K Given : Not Given Erythromycin Given: Not Given WEIGHT/LENGTH BABY A Infant Birthweight (gm): 3110 Weight (lb): 6 Infant Weight (oz): 14 Length (in): 18.50 Infant Length (cm): 46.99 CORD INFORMATION BABY A No. Cord Vessels: 3 Nuchal Cord : N/A Cord Blood Taken: Yes Suction: Mouth; Nose ASSESSMENT BABY A Infant Complications: None Physical Findings at Delivery: Within Normal Limits Respirations: Appears Normal Hose Operator/ALS Called : No Infant Care By: Juan TIPTON RN Transferred To: Remains with Mother
[2016-12-25 22:30] VITALS: BP 144/85; PULSE 97; RESP 17
[2016-12-25] MEDS: LACTATED RINGER'S 1,000 ML IV* SCH (22:43)
[2016-12-25] MEDS ORDERED: DIBUCAINE 1% 30 GM OINT PR PRN (23:00)
[2016-12-25] MEDS ORDERED: ACETAMINOPHEN 325 MG TAB PO PRN (23:00)
[2016-12-25] MEDS ORDERED: MISOPROSTOL 200 MCG TAB PR PRN (23:00)
[2016-12-25] MEDS ORDERED: BENZOCAINE 20% 56 ML SPRAY TOP PRN (23:00)
[2016-12-25] MEDS ORDERED: OXYTOCIN 30 UNITS/LR 500 ML IV PRN (23:00)
[2016-12-25] MEDS ORDERED: CARBOPROST 250 MCG INJ IM PRN (23:00)
[2016-12-25] MEDS ORDERED: WITCH HAZEL/GLYCERIN PAD PR PRN (23:00)
[2016-12-25] MEDS ORDERED: METHYLERGONOVINE 0.2 MG INJ IM PRN (23:00)
[2016-12-25] MEDS: IBUPROFEN 600 MG TAB PO SCH (23:25)
[2016-12-25] MEDS: ACETAMINOPHEN/CODEINE #3 TAB PO PRN (23:26)
[2016-12-25 23:30] VITALS: BP 136/82; PULSE 97; RESP 18
[2016-12-26] VITALS (17 sets, daily range): BP systolic 110–147; BP diastolic 56–85; PULSE 60–78; RESP 18–20
[2016-12-26] MEDS: LACTATED RINGER'S 1,000 ML IV* SCH ×3 (03:46→22:43)
[2016-12-26] MEDS: MAGNESIUM SULFATE 20 GM/500 ML 500 ML IV SCH ×2 (03:47→13:39)
[2016-12-26] MEDS: IBUPROFEN 600 MG TAB PO SCH ×3 (05:50→17:51)
[2016-12-26] MEDS: ACETAMINOPHEN/CODEINE #3 TAB PO PRN (05:51)
[2016-12-26 08:22] LABS: ADD SCAN DIFF NO
[2016-12-26 08:26] LABS: BASOPHILS % 0.3 % (0.0-2.0); EOSINOPHILS % 0.4 % (0.0-7.0); HEMATOCRIT 35.6 % (37.0-47.0); HEMOGLOBIN 12.4 g/dl (12.0-16.0); LYMPHOCYTES % 12.8 % (15.0-51.0); MEAN CORPUSCULAR HEMOGLOBIN 31.5 pg (29.0-33.0); MEAN CORPUSCULAR HGB CONC 34.8 g/dl (32.0-37.0); MEAN CORPUSCULAR VOLUME 90.4 fl (82.0-101.0); MEAN PLATELET VOLUME 10.7 fl (7.4-10.4); MONOCYTE # 0.6 10^3/ul (0.3-0.9); MONOCYTES % 7.3 % (0.0-11.0); NEUTROPHILS % 78.8 % (39.0-77.0); PLATELET COUNT 161 10^3/UL (140-415); RED BLOOD COUNT 3.94 10^6/ul (4.20-5.40); RED CELL DISTRIBUTION WIDTH 13.4 % (11.5-14.5); WHITE BLOOD COUNT 7.6 10^3/ul (4.8-10.8)
[2016-12-26] MEDS: LEVETIRACETAM 500 MG TAB PO SCH ×2 (09:13→21:11)
[2016-12-26] MEDS: SENNA/DOCUSATE NA (8.6MG/50MG) TAB PO SCH ×2 (09:13→21:11)
--- NOTE | 2016-12-26 15:26 | QN ---
Documentation Comment No complaint Afebrile VSS Fundus Firm Lochia Scant PPD #1 Stable D/C magnesium sulfate after 24 hours. MATT GARCIA MD Dec 26, 2016 15:26
[2016-12-27] MEDS: IBUPROFEN 600 MG TAB PO SCH ×3 (00:17→11:51)
[2016-12-27 04:00] VITALS: BP 125/80; PULSE 67; RESP 18
[2016-12-27] MEDS: LACTATED RINGER'S 1,000 ML IV* SCH (06:43)
[2016-12-27 08:00] VITALS: BP 120/65; PULSE 65; RESP 19
[2016-12-27] MEDS ORDERED: DIPHTH/TET/ACEL PERTUSS (ADULT) 0.5 ML VIAL IM* ONE (09:00)
[2016-12-27] MEDS: LEVETIRACETAM 500 MG TAB PO SCH (09:13)
[2016-12-27] MEDS: SENNA/DOCUSATE NA (8.6MG/50MG) TAB PO SCH (09:13)
[2016-12-27 12:04] VITALS: BP 120/70; PULSE 69; RESP 19
--- NOTE | 2016-12-27 16:01 | DS ---
Date/Time of Note Date/Time of Note DATE: 12/27/16 TIME: 16:00 Obstetrical Discharge Record Final Diagnosis Final Diagnosis: Term delivered Vaginal Delivery Obstetrical Delivery: Spontaneous Complications Preg induced Hypertension Augmentation: Yes Condition on Discharge Physical Assessment Voiding: Yes Bowel Movement: Yes Breast: Soft, non-tender Fundus: Firm Calf Tenderness: No Patient Condition: Stable MATT GARCIA MD Dec 27, 2016 16:01
== END 2016-12-27 16:20 | disposition home or self-care (01) | DRG 775 ==
LOC: OBT 17:50 → L-D 17:54 → PP1 12-25 22:19 → EDSTATUS 12-29 17:52
PROVIDERS: ADMIT Obstetrics & Gynecology; ATTEND Obstetrics & Gynecology
PROC: 10E0XZZ Delivery of Products of Conception, External Approach (ICD-10-PCS; principal; 2016-12-24)
DX: O80 Encounter for full-term uncomplicated delivery (principal); G40.909 Epilepsy, unspecified, not intractable, without status epilepticus; Z3A.39 39 weeks gestation of pregnancy; Z37.0 Single live birth
CPT/HCPCS: 62319; 80053; 81001; 83735; 84560; 85025; 85384; 85610; 85730; 86592; 86900; 86901; 87340; 90715; J2590; J3010; J3475; J7120